=== PATIENT | male | born 1965 | race Caucasian/White ===

== ENCOUNTER 2023-01-15 00:51 | Emergency (ER) | payer OTHER ==
[~2023-01-15] VITALS: Ht 185.4 cm; Wt 131.8 kg
[~2023-01-15 00:51] MED LIST: HYDR-4069 PO; LORA10TA7 PO
[2023-01-15 00:54] VITALS: BP 150/90; PULSE 100; RESP 16; TEMP 98.2
[2023-01-15] MEDS ORDERED: KETOROLAC TROMETHAMINE 30 MG/ML VIAL IM ONE (01:30)
[2023-01-15] MEDS ORDERED: HYDROCODONE/ACETAMINOPHEN 5-325 MG TABLET PO ONE (01:30)
[2023-01-15] MEDS ORDERED: LIDOCAINE 1% 10 ML VIAL SQ ONE (01:30)
[2023-01-15] MEDS ORDERED: CLINDAMYCIN HCL 150 MG CAPSULE PO ONE (01:30)
[2023-01-15] MEDS ORDERED: CLIN-142 PO (02:18)
== END 2023-01-15 02:23 | disposition home or self-care (01) ==
LOC: EMS 00:52
DX: K02.9 Dental caries, unspecified (principal); G43.909 Migraine, unspecified, not intractable, without status migrainosus; G89.29 Other chronic pain; E66.9 Obesity, unspecified; F17.210 Nicotine dependence, cigarettes, uncomplicated; F12.90 Cannabis use, unspecified, uncomplicated; Z88.0 Allergy status to penicillin
CPT/HCPCS: 99283; 10060; 96372; J1885; J3490